=== PATIENT | female | born 1955 | race Caucasian/White ===

== ENCOUNTER 2018-03-25 11:35 | Outpatient (CLI) | payer BC, OTHER | END 2018-03-25 11:36 | disposition critical access hospital (66) | LOC: EMS 11:35 | PROVIDERS: ATTEND Surgery | DX: M25.562 Pain in left knee (principal); X50.0XXA Overexertion from strenuous movement or load, initial encounter; Y93.73 Activity, racquet and hand sports; Y92.312 Tennis court as the place of occurrence of the external cause | CPT/HCPCS: A0425; A0429 ==

== ENCOUNTER 2018-03-25 11:59 | Emergency (ER) | payer BC, OTHER ==
[2018-03-25] MEDS ORDERED: HYDROcod/ACETAM 5/325 MG TABLET PO STA (12:36)
--- NOTE | 2018-03-25 12:36 | ED Physician Documentation ---
PD HPI LOWER EXT INJURY - Stated complaint Stated Complaint: KNEE INJURY - Chief complaint Chief Complaint: Ext Problem - History obtained from History obtained from: Patient, Family, EMS - History of Present Illness PD HPI LOW EXT INJURY LOCATION: Left, Knee Type of injury: Twist (playing tennis and twisted the L knee, now increased pain ) Where injury occurred: Other (tennis court) Timing - onset: Today Timing - duration: Days (1) Timing - details: Abrupt onset Pain level max: 6 Pain level now: 4 Improved by: Rest, Immobilization Worsened by: Moving, Palpating Associated symptoms: No: Weakness, Numbness, Tingling, Swelling Contributing factors: No: Anticoagulated, Prior ortho surgery, Prosthetic joint Similar symptoms before: Has not had sx before Recently seen: Not recently seen Review of Systems Constitutional: denies: Fever, Chills GI: denies: Vomiting, Diarrhea Skin: denies: Rash Musculoskeletal: denies: Neck pain, Back pain Neurologic: denies: Head injury PD PAST MEDICAL HISTORY - Past Medical History Past Medical History: No - Past Surgical History Past Surgical History: Yes Ortho: Other - Present Medications Home Medications: Ambulatory Orders Medication Instructions Recorded Confirmed Hydrocodone/Acetaminophen 1 - 2 each PO Q6H PRN #14 tablet 03/25/18 [Hydrocodon-Acetaminophen 5-325] - Allergies Allergies/Adverse Reactions: Allergies Allergy/AdvReac Type Severity Reaction Status Date / Time No Known Drug Allergies Allergy Verified 03/25/18 12:04 - Social History Does the pt smoke?: No Smoking Status: Never smoker Does the pt drink ETOH?: Yes ETOH Use: Wine Does the pt have substance abuse?: No PD ED PE NORMAL - Vitals Vital signs reviewed: Yes - General General: Alert and oriented X 3, No acute distress - HEENT HEENT: Moist mucous membranes - Neck Neck: Supple, no meningeal sign - Cardiac Cardiac: RRR - Respiratory Respiratory: No respiratory distress, Clear bilaterally - Back Back: No spinal TTP - Derm Derm: Warm and dry - Extremities Extremities: Other (L knee - ACL, MCL, PCL intact. LCL has laxity with stress. Mild joint effusion as well. Does have some bony tenderness on the lateral joint line. Neurovascularly intact) - Neuro Neuro: Alert and oriented X 3 Results - Vitals Vitals: Vital Signs - 24 hr 03/25/18 03/25/18 12:00 13:54 Temperature 36.1 C L 35.9 C L Heart Rate 67 58 L Respiratory 16 18 Rate Blood Pressure 108/79 121/87 H O2 Saturation 97 97 Oxygen O2 Source Room air - Rads (name of study) L knee xray Radiology: Prelim report reviewed, EMP read contemporaneously, See rad report ( No acute osseous abnormality. Joint effusion. ) PD MEDICAL DECISION MAKING - ED course Complexity details: reviewed results, re-evaluated patient, considered differential, d/w patient, d/w family ED course: Patient is a 62-year-old female who presents to the emergency department with what appears to be an LCL sprain of the left knee. X-ray does not show any bony abnormalities. Placed an articulating knee brace and given crutches. Will have her follow-up with her doctor and/or orthopedics for repeat evaluation and further care. Patient and family counseled regarding signs and symptoms for which I believe and urgent re-evaluation would be necessary. Patient with good understanding of and agreement to plan and is comfortable going home at this time This document was made in part using voice recognition software. While efforts are made to proofread this document, sound alike and grammatical errors may occur. - Sepsis Event Vital Signs: Vital Signs - 24 hr 03/25/18 03/25/18 12:00 13:54 Temperature 36.1 C L 35.9 C L Heart Rate 67 58 L Respiratory 16 18 Rate Blood Pressure 108/79 121/87 H O2 Saturation 97 97 Oxygen O2 Source Room air Departure - Departure Disposition: 01 Home, Self Care Clinical Impression: Knee LCL sprain Qualifiers: Encounter type: initial encounter Laterality: left Qualified Code(s): S83.422A - Sprain of lateral collateral ligament of left knee, initial encounter Condition: Good Instructions: ED Sprain Knee Follow-Up: your,doctor in 1 week [Other] Prescriptions: Hydrocodone/Acetaminophen [Hydrocodon-Acetaminophen 5-325] 1 - 2 each PO Q6H PRN #14 tablet PRN Reason: pain Comments: Return if you worsen. Keep the brace on until seen by your doctor. Discharge Date/Time: 03/25/18 14:02
--- NOTE | 2018-03-25 13:13 | XRAY Report ---
Procedure Date: 03/25/2018 Accession Number: [id number] / [id number] Procedure: XR - Knee 4 View LT CPT Code: FULL RESULT: EXAM: LEFT KNEE RADIOGRAPHY EXAM DATE: 03/25/2018 12:50 PM. CLINICAL HISTORY: Fall, L knee pain, LCL tenderness. COMPARISON: None. TECHNIQUE: 4 views. FINDINGS: Bones: No acute fracture. Joints: Mild medial compartment joint space narrowing. Moderate to large effusion. No subluxations. Soft Tissues: No focal soft tissue swelling. IMPRESSION: No acute osseous abnormality. Joint effusion. RADIA
[2018-03-25 13:54] VITALS: BP 121/87
== END 2018-03-25 14:02 | disposition home or self-care (01) ==
LOC: ED 11:59
DX: S83.422A Sprain of lateral collateral ligament of left knee, initial encounter (principal); X50.1XXA Overexertion from prolonged static or awkward postures, initial encounter; Y93.73 Activity, racquet and hand sports; Y92.312 Tennis court as the place of occurrence of the external cause
CPT/HCPCS: 29530; 73564; 99283; A9270

== ENCOUNTER 2020-12-01 11:18 | Outpatient (CLI) | payer OTHER ==
--- NOTE | 2020-12-07 12:23 | Mammography Report ---
BILATERAL DIGITAL SCREENING MAMMOGRAM 3D/2D: 12/01/2020 CLINICAL: Routine screening. Comparison is made to exams dated: 07/16/2019 mammogram and 06/05/2018 mammogram - [facility]. The tissue of both breasts is heterogeneously dense. This may lower the sensitivity of mammograph y. No significant masses, calcifications, or other findings are seen in either breast. There has been no significant interval change. IMPRESSION: NEGATIVE There is no mammographic evidence of malignancy. A 1 year screening mammogram is recommended. This exam was interpreted at Station ID: [id number]. NOTE: For mammograms, a report in lay terms will be sent to the patient. Approximately 15% of breast malignancies will not be visualized mammographically. In the management of a palpable breast mass, a negative mammogram must not discourage biopsy of a clinically suspicious lesion. Electronically Signed By: Onofre Combs M.D. ar/penrad:12/04/2020 14:21:13 ACR BI-RADS Category 1: Negative 3341F PARENCHYMAL PATTERN: (D) - The breast(s) demonstrate(s) heterogeneously dense fibroglandular bonnie isbell. BI-RADS CATEGORY: (1) - 1 RECOMMENDATION: (ANNUAL) - Recommend routine annual screening mammography. [id number] 1 year screening LATERALITY: (B)
== END 2020-12-01 11:19 | disposition home or self-care (01) ==
LOC: DI.N 11:18
DX: Z12.31 Encounter for screening mammogram for malignant neoplasm of breast (principal)

== ENCOUNTER 2021-10-25 06:20 | Day surgery (SDC) | payer MEDICARE, OTHER ==
[2021-10-25] MEDS ORDERED: LACTATED RINGERS 1,000 ML IV ONE (06:23)
--- NOTE | 2021-10-25 07:23 | ANESTHESIA ---
Pre-Anesthesia VS, & Labs - Diagnosis family hx of GI malignancy, personal hx of polyps - Procedure EGD, Colonoscopy Vital Signs: Temp Pulse Resp BP Pulse Ox 36.6 C 59 L 16 146/94 H 100 10/25/21 06:27 10/25/21 06:27 10/25/21 06:27 10/25/21 06:27 10/25/21 06:27 Height: 5 ft 4 in Weight (kg): 54.3 kg Body Mass Index: 20.5 BMI Classification: Healthy weight - NPO >8 hours - Is Patient ?: No Home Medications and Allergies Allergies/Adverse Reactions: Allergies Allergy/AdvReac Type Severity Reaction Status Date / Time No Known Drug Allergies Allergy Verified 10/22/21 12:54 Anes History & Medical History - Anesthetic History Anesthesia Complications: reports: No previous complications Family history of Anesthesia Complications: Denies - Medical History Cardiovascular: reports: None Pulmonary: reports: None Gastrointestinal: reports: Colon polyps, Hepatitis Musculoskeletal: reports: Other Smoking Status: Never smoker Psychosocial: reports: Anxiety History of Cancer?: No - Surgical History General: reports: Appendectomy Orthopedic: reports: Other Exam General: Alert, Oriented x3, Cooperative Dental: WNL Mouth Openin Fingerbreadth Neck Mobility: Normal Mallampati classification: I Thyromental Distance: 4-6 cm Respiratory: Lungs clear Cardiovascular: Regular rate Plan Anesthesia Type: Total IV Consent for Procedure(s) Verified and Reviewed: Yes Code Status: Attempt Resuscitation ASA classification: 2-Mild systemic disease Is this case an emergency?: No
[2021-10-25] MEDS ORDERED: PROPOFOL 500 MG/50 ML 500 MG/50 ML VIAL ONE (07:24)
[2021-10-25] MEDS ORDERED: LIDOCAINE-MPF 2% 5 ML VIAL ONE (07:25)
[2021-10-25] MEDS ORDERED: MIDAZOLAM 2 MG/2 ML VIAL ONE (07:30)
[2021-10-25] MEDS ORDERED: fentaNYL 100 MCG/2 ML VIAL ONE (07:30)
[2021-10-25] MEDS ORDERED: LACTATED RINGERS 300 ML IV ONE (08:49)
[2021-10-25 09:13] VITALS: BP 118/74
--- NOTE | 2021-10-25 11:36 | ANESTHESIA POST OP EVALUATION ---
Anesthesia Post Eval - Post Anesthesia Eval Vitals: Last Vital Signs Temp 36.4 C L 10/25/21 09:12 Pulse 64 10/25/21 09:12 Resp 16 10/25/21 09:12 BP 118/74 10/25/21 09:12 Pulse Ox 97 10/25/21 09:12 CV Function Including HR & BP: Stable Pain Control: Satisfactory Nausea & Vomiting: Negative Mental Status: Baseline Respiratory Status: Airway Patent Hydration Status: Satisfactory Anesthesia Complications: None
== END 2021-10-25 06:21 | disposition home or self-care (01) ==
LOC: SDS 06:20
PROVIDERS: ATTEND Surgery
PROC: 0DB98ZX Excision of Duodenum, Via Natural or Artificial Opening Endoscopic, Diagnostic (ICD-10-PCS; 2021-10-25)
PROC: 0DB78ZX Excision of Stomach, Pylorus, Via Natural or Artificial Opening Endoscopic, Diagnostic (ICD-10-PCS; 2021-10-25)
PROC: 0DB58ZX Excision of Esophagus, Via Natural or Artificial Opening Endoscopic, Diagnostic (ICD-10-PCS; 2021-10-25)
PROC: 0DBM8ZZ Excision of Descending Colon, Via Natural or Artificial Opening Endoscopic (ICD-10-PCS; principal; 2021-10-25 07:30)
PROC: 0DBE8ZX Excision of Large Intestine, Via Natural or Artificial Opening Endoscopic, Diagnostic (ICD-10-PCS; 2021-10-25 07:30)
DX: R10.13 Epigastric pain (principal); D12.4 Benign neoplasm of descending colon; K64.4 Residual hemorrhoidal skin tags; K64.8 Other hemorrhoids; K29.50 Unspecified chronic gastritis without bleeding; K31.A11 Gastric intestinal metaplasia without dysplasia, involving the antrum; K44.9 Diaphragmatic hernia without obstruction or gangrene; Z80.0 Family history of malignant neoplasm of digestive organs; F41.9 Anxiety disorder, unspecified
CPT/HCPCS: 43239; 45380; J7120

== ENCOUNTER 2022-06-14 12:33 | Outpatient (CLI) | payer MEDICARE, OTHER ==
--- NOTE | 2022-06-14 14:14 | XRAY Report ---
PROCEDURE: Chest 2 View X-Ray INDICATIONS: ACUTE COUGH TECHNIQUE: 2 view chest. COMPARISON: None. FINDINGS: Lungs are hyperinflated, suggesting COPD. No focal infiltrate or or consolidation. No pleur al effusion or pneumothorax. Cardiac silhouette is normal. Visualized osseous structures are normal. IMPRESSION: 1. Suspect COPD. 2. No acute cardiopulmonary disease. Reviewed by: Jerod Aguirre MD on 06/14/2022 2:13 PM PDT Approved by: Jerod Aguirre MD on 06/14/2022 2:13 PM PDT Station ID: [id number]
--- NOTE | 2022-06-15 12:52 | MRI Report ---
PROCEDURE: KNEE WO - LT INDICATIONS: LEFT KNEE PAIN TECHNIQUE: Noncontrast sagittal PD fast spin echo and T2 fast spin echo with fat saturation, sagittal 3-D gradie nt sequence with fat saturation; coronal T1 spin echo and PD fast spin echo with fat saturation, and axial PD fast spin echo with fat saturation through the knee. COMPARISON: X-ray left knee, 03/25/2018. FINDINGS: Image quality: Excellent. Menisci: There is tear of the posterior horn the medial meniscus involving the superior and inferior articular surfaces. The edge of the body of the medial meniscus appears blunted, compatible with tear . The lateral meniscus is normal in morphology and internal signal. The meniscal root ligaments appe ar intact. Cruciate ligaments: There may be partial tear or scarring of the proximal anterior cruciate ligament . The posterior cruciate ligament is intact. Medial structures: The medial collateral ligament appears intact. The semimembranosus tendon insert ions, and oblique popliteal ligament, and meniscocapsular junction appear intact. Visualized portion s of the pes anserinus tendons appear normal. No abnormal bursal fluid. Lateral structures: The lateral collateral ligament, long and short heads of the biceps femoris tend on appear intact. The popliteus tendon appears normal. Iliotibial band appears normal. Anterior structures: The quadriceps and patellar tendons appear intact. Patellar alignment is shon l. No femoral trochlear dysplasia or ventral trochlear prominence. No edema in the infrapatellar fa t pad. Bones and cartilage: There is a small fracture in the posterior corner of the medial tibial plateau w ith mild bone marrow edema (series 6 image 11). The fractures probably chronic or subacute. Subtle ed anil is also seen in the anterior aspect of the medial femoral condyle. There is tricompartmental cart ilage thinning and fibrillation, most pronounced in the medial femorotibial compartment. Joint space: There is physiologic knee joint fluid. No Chance's cyst. Normal appearing synovial pli are incidentally noted. IMPRESSION: 1. Medial meniscal tear involving the posterior horn and body. 2. Question partial tear or scarring of the proximal anterior cruciate ligament. 3. Small fracture involving the posterior corner of the medial tibial plateau, probably chronic or gloria bacute. Correlation with history of injury. 4. Tricompartmental cartilage loss, most pronounced in the medial femorotibial compartment. Reviewed by: Jerod Aguirre MD on 06/15/2022 12:50 PM PDT Approved by: Jerod Aguirre MD on 06/15/2022 12:50 PM PDT Station ID: [id number]
== END 2022-06-14 12:34 | disposition home or self-care (01) ==
LOC: DI 12:33
PROVIDERS: ATTEND Internal Medicine
DX: S83.242A Other tear of medial meniscus, current injury, left knee, initial encounter (principal); S82.142A Displaced bicondylar fracture of left tibia, initial encounter for closed fracture; M94.8X6 Other specified disorders of cartilage, lower leg; R05.1 Acute cough

== ENCOUNTER 2023-06-08 11:45 | Outpatient (CLI) | payer MEDICARE, OTHER ==
--- NOTE | 2023-06-08 12:28 | XRAY Report ---
PROCEDURE: Ribs w/PA Chest LT INDICATIONS: RIB PAIN TECHNIQUE: 2 views of the left ribs were acquired, along with a single view chest. COMPARISON: None. FINDINGS: Surgical changes and devices: None. Bones and chest wall: No fractures or dislocations. No suspicious bony lesions. Overlying soft tis sues appear unremarkable. Lungs and pleura: No pleural effusions or pneumothorax. Lungs appear clear. Mediastinum: Mediastinal contours appear normal. Heart size is normal. IMPRESSION: No displaced rib fracture or pneumothorax. Reviewed by: Romain Gibson MD on 06/08/2023 12:27 PM PDT Approved by: Romain Gibson MD on 06/08/2023 12:27 PM PDT Station ID: [id number]
== END 2023-06-08 11:46 | disposition home or self-care (01) ==
LOC: DI 11:45
PROVIDERS: ATTEND Internal Medicine
DX: R07.81 Pleurodynia (principal)

== ENCOUNTER 2023-06-12 14:08 | Outpatient (CLI) | payer MEDICARE, OTHER ==
[2023-06-12] MEDS: iohexoL-300 100 ML VIAL IVP ONE (16:49)
--- NOTE | 2023-06-12 17:11 | CT Report ---
PROCEDURE: CT chest with contrast INDICATIONS: RIB PAIN TECHNIQUE: Helical axial CT of the chest was obtained after an intravenous contrast injection and ref ormatted in multiple planes. Radiation dose reduction was achieved using automated exposure control, adjustment of mA and/or kV according to patient size. COMPARISON: None FINDINGS: Lungs and pleura: Lungs and pleural spaces are clear without pulmonary infiltrate, pneumothorax or pl eural effusion. Mild bilateral lower lobe scarring noted Mediastinum: Heart size is normal. No pericardial effusion. No large vessel abnormality. No mediastin al adenopathy by size criteria. Chest wall and lower neck: [Thyroid nodule measures 2.5 0.8 cm No axillary or supraclavicular adenopa thy by size. Bones: No aggressive osseous abnormality. Upper Abdomen: Left renal cyst, partially imaged IMPRESSION: No evidence of rib fracture or intrinsic osseous lesion. Bilateral lower lobe scarring with linear platelike atelectasis or consolidation in the right lower l obe Reviewed by: Emory Carrera MD on 06/12/2023 4:09 PM AKDT Approved by: Emory Carrera MD on 06/12/2023 4:09 PM AKDT Station ID: [id number]
== END 2023-06-12 14:09 | disposition home or self-care (01) ==
LOC: DI 14:08
PROVIDERS: ATTEND Internal Medicine
DX: R07.81 Pleurodynia (principal)
CPT/HCPCS: 71260; Q9967

== ENCOUNTER 2024-02-23 10:32 | Outpatient (CLI) | payer MEDICARE, OTHER ==
[2024-02-23] MEDS ORDERED: DIATRIZOATE MEGLU/DIATRIZO SOD 30 ML BOTTLE PO ONE (10:37)
--- NOTE | 2024-02-23 14:48 | CT Report ---
PROCEDURE: Abdomen WO INDICATIONS: ABD PAIN CONTRAST: None TECHNIQUE: After the administration of oral contrast, 5 mm thick sections acquired from the diaphragms to the il iac crests. 5 mm coronal and sagittal reformats were then performed. For radiation dose reduction, the following was used: automated exposure control, adjustment of mA and/or kV according to patient size. COMPARISON: None FINDINGS: Image quality: Excellent. Lung bases: Lung bases demonstrate minor groundglass opacity posteriorly. No dense consolidations or effusion. Normal size heart. No hiatal hernia. Solid organs: Liver and spleen are normal in size. There is a cyst to the right of the falciform lig ament. Tiny cyst in the liver dome. Gallbladder is decompressed. Pancreas is normal in contours. No adrenal nodules. Both kidneys are normal in size, without hydronephrosis or nephrolithiasis. Parti ally exophytic 4.4 cm low-density cystic mass arises from the lower pole left kidney with Hounsfield units in the indeterminate range. There is no peripheral calcification or visible septation without c ontrast. Peritoneum and bowel: Stomach and visible bowel loops demonstrate normal wall thickness and caliber. No free fluid or air. Nodes and vessels: No retroperitoneal or mesenteric adenopathy by size criteria. Aorta and inferior vena cava are normal in size. Bones: No suspicious bony lesions. No vertebral body compression fractures. Miscellaneous: There is a narrow necked, fat-containing fascial defect in the supraumbilical midline. The defect measures about 0.9 x 1.2 cm in maximal diameter. There are herniated fat and vessels in t he subcutaneous tissue without induration or fluid. There is a very tiny umbilical hernia. No other v isible abdominal wall hernias. IMPRESSION: Narrowed, fat-containing supraumbilical hernia without CT evidence of inflammation. 4.4 cm cystic mass arising from the lower pole left kidney. This is probably a mildly hyperdense cyst but further evaluation with contrast-enhanced renal protocol CT or MRI is recommended for confirmati on. Reviewed by: Isamar Arreaga MD on 02/23/2024 2:47 PM PDT Approved by: Isamar Arreaga MD on 02/23/2024 2:47 PM PDT Station ID: [id number]
[2024-02-23] MEDS: DIATRIZOATE MEGLU/DIATRIZO SOD 30 ML BOTTLE PO ONE (16:26)
== END 2024-02-23 10:33 | disposition home or self-care (01) ==
LOC: DI 10:32
PROVIDERS: ATTEND Surgery
DX: K43.9 Ventral hernia without obstruction or gangrene (principal); N28.89 Other specified disorders of kidney and ureter
CPT/HCPCS: 74150; Q9963

== ENCOUNTER 2024-03-19 09:05 | Day surgery (SDC) | payer MEDICARE, OTHER ==
[~2024-03-19 09:05] MED LIST: PROPOFOL 500 MG/50 ML 500 MG/50 ML VIAL ONE
[2024-03-19] MEDS: LACTATED RINGERS 1,000 ML IV ONE (09:14)
--- NOTE | 2024-03-19 09:50 | ANESTHESIA ---
Pre-Anesthesia VS, & Labs - Diagnosis GASTRIC INTESTINAL METAPLASIA - Procedure ESOPHAGOGASTRODUODENOSCOPY Vital Signs: Temp Pulse Resp BP Pulse Ox O2 Flow Rate 36.2 C L 75 14 100 03/19/24 09:15 03/19/24 09:15 03/19/24 09:15 03/19/24 09:15 Height: 5 ft 4 in Weight (kg): 54.4 kg Body Mass Index: 20.5 BMI Classification: Normal - NPO >8 hours - Is Patient ?: No Home Medications and Allergies Allergies/Adverse Reactions: Allergies Allergy/AdvReac Type Severity Reaction Status Date / Time No Known Drug Allergies Allergy Verified 10/22/21 12:54 Anes History & Medical History - Anesthetic History Anesthesia Complications: reports: No previous complications Family history of Anesthesia Complications: Denies Family history of Malignant Hyperthermia: Denies - Medical History Cardiovascular: reports: None Pulmonary: reports: None Gastrointestinal: reports: Colon polyps, Hepatitis Urinary: reports: None Neuro: reports: None Musculoskeletal: reports: Other Endocrine/Autoimmune: reports: None Blood Disorders: reports: None Skin: reports: None Smoking Status: Never smoker Psychosocial: reports: Alcohol (2 GLASSES OF WINE EACH EVENING) History of Cancer?: Yes (SKIN CANCER RESOLVED; NO CHEMO OR RADIATION) - Surgical History General: reports: Appendectomy Orthopedic: reports: Other Results - EKG Results EKG Comparison: Reviewed EKG, Normal EKG Exam General: Alert Dental: WNL Mouth Openin Fingerbreadth Neck Mobility: Normal Mallampati classification: II Thyromental Distance: 4-6 cm Respiratory: Lungs clear, Normal breath sounds, No respiratory distress, No accessory muscle use Cardiovascular: Regular rate, Normal S1, Normal S2, No murmurs Mental/Cognitive Status: Alert/Oriented X3, Normal for patient Cognitive Status: Within normal limits Plan Anesthesia Type: General Consent for Procedure(s) Verified and Reviewed: Yes Code Status: Attempt Resuscitation ASA classification: 1-Healthy patient Is this case an emergency?: No
[2024-03-19] MEDS: LACTATED RINGERS 800 ML IV ONE ×2 (11:38)
[2024-03-19 11:50] VITALS: O2SAT 98
[2024-03-19 12:05] VITALS: BP 111/72
--- NOTE | 2024-03-19 12:59 | ANESTHESIA POST OP EVALUATION ---
Anesthesia Post Eval - Post Anesthesia Eval Vitals: Last Vital Signs Temp 36.0 C L 03/19/24 11:39 Pulse 67 03/19/24 11:57 Resp 18 03/19/24 11:57 BP 111/72 03/19/24 11:57 Pulse Ox 98 03/19/24 11:57 O2 Flow Rate CV Function Including HR & BP: Stable Pain Control: Satisfactory Nausea & Vomiting: Negative Mental Status: Baseline Respiratory Status: Airway Patent Hydration Status: Satisfactory Anesthesia Complications: None
[2024-03-19] MEDS ORDERED: LIDOCAINE-MPF 2% 5 ML VIAL ONE (14:04)
== END 2024-03-19 09:06 | disposition home or self-care (01) ==
LOC: SDS 09:05
PROVIDERS: ATTEND Surgery
PROC: 0DB78ZX Excision of Stomach, Pylorus, Via Natural or Artificial Opening Endoscopic, Diagnostic (ICD-10-PCS; 2024-03-19)
PROC: 0DB68ZX Excision of Stomach, Via Natural or Artificial Opening Endoscopic, Diagnostic (ICD-10-PCS; principal; 2024-03-19 11:30)
DX: K31.A0 Gastric intestinal metaplasia, unspecified (principal)
CPT/HCPCS: 43239; J7120